=== PATIENT | female | born 1985 | race Caucasian/White ===

== ENCOUNTER 2018-09-29 00:24 | Emergency (ER) | payer SELFPAY ==
[2018-09-29 00:26] VITALS: BMI 19.6
[2018-09-29] MEDS ORDERED: LIBRIUM25 MG PO (00:28)
[2018-09-29 01:25] LABS: APPEARANCE CLEAR (CLEAR); BILIRUBIN NEGATIVE (NEGATIVE); COLOR YELLOW (YELLOW); GLUCOSE NEGATIVE (NEGATIVE); KETONE NEGATIVE (NEGATIVE); NITRITE NEGATIVE (NEGATIVE); PROTEIN NEGATIVE (NEGATIVE); UROBILINOGEN NORMAL (NORMAL)
[2018-09-29 01:33] LABS: HEMOGLOBIN 12.8 g/dL (12-16); LYMPHOCYTES 29.2 % (15-50); MCH 32.9 pg (26.0-34.0); MCHC 36.6 g/dL (31.0-37.0); MEAN PLATELET VOLUME 9.5 fL (7.4-10.4); NEUTROPHILS 62.5 % (40-80); PLATELET COUNT 188 10x3/uL (130-400); RBC 3.89 10x6/uL (4.00-5.40); RDW 12.5 % (11.5-14.5)
[2018-09-29 01:41] LABS: HCG SERUM NEGATIVE (NEGATIVE)
[2018-09-29 01:47] LABS: ALBUMIN 3.5 g/dL (3.4-5.0); ALKALINE PHOSPHATASE 64 U/L (46-116); ALT (SGPT) 18 U/L (10-68); BILIRUBIN - TOTAL 0.25 mg/dL (0.2-1.3); CALC OSMOLALITY 277 mosm/kg (275-300); CALCIUM 8.8 mg/dL (8.5-10.1); CARBON DIOXIDE 28.1 mmol/L (21.0-32.0); CHLORIDE - SERUM 105 mmol/L (98-107); CREATININE - SERUM 0.7 mg/dL (0.6-1.3); GLUCOSE 109 mg/dL (74-106); POTASSIUM - SERUM 3.9 mmol/L (3.5-5.1); PROTEIN - SERUM 6.7 g/dL (6.4-8.2); SODIUM 139 mmol/L (136-145); UREA NITROGEN 10 mg/dL (7-18); eGFR NON AFRICAN AMERICAN > 90 mL/min (90-120)
[2018-09-29 01:57] LABS: APTT 28.5 SECONDS (22.8-39.4); INR 0.96 (0.85-1.17); PROTIME 12.3 SECONDS (11.6-15.0)
[2018-09-29 01:58] LABS: CKMB 1.3 U/L (0.0-3.6); CREATINE KINASE 89 UL (21-215); MAGNESIUM - SERUM 2.1 mg/dL (1.8-2.4)
[2018-09-29 02:05] LABS: TROPONIN-I < 0.017 ng/mL (0.000-0.060)
[2018-09-29 04:53] VITALS: BP 102/73
[2018-09-30] MEDS ORDERED: VIBRAMYCIN 100100 MG PO (17:34)
[2018-09-30] MEDS ORDERED: NAPROSYN500 MG PO (17:34)
== END 2018-09-29 04:53 | disposition home or self-care (01) ==
LOC: D.ER 00:24
PROVIDERS: Family Medicine
DX: R00.2 Palpitations (principal); F10.21 Alcohol dependence, in remission

== ENCOUNTER 2018-09-30 15:49 | Emergency (ER) | payer SELFPAY ==
[~2018-09-30] VITALS: Ht 170.2 cm; Wt 56.8 kg
[~2018-09-30 15:49] MED LIST: LIBRIUM25 MG PO
[2018-09-30 16:22] VITALS: BP 142/89; Ht 170.2 cm; Wt 56.8 kg
[2018-09-30] MEDS ORDERED: VIBRAMYCIN 100100 MG PO (17:34)
[2018-09-30] MEDS ORDERED: NAPROSYN500 MG PO (17:34)
== END 2018-09-30 18:10 | disposition home or self-care (01) ==
LOC: D.ER 15:49
DX: R05 Cough (principal); M94.0 Chondrocostal junction syndrome [Tietze]

== ENCOUNTER 2018-10-22 12:36 | Emergency (ER) | payer MEDICAID ==
[~2018-10-22] VITALS: Ht 170.2 cm; Wt 56.8 kg
[~2018-10-22 12:36] MED LIST changes: +NAPROSYN500 MG PO; +VIBRAMYCIN 100100 MG PO
[2018-10-22 12:39] VITALS: Ht 170.2 cm; Wt 56.8 kg
[2018-10-22] MEDS ORDERED: INDERAL 40 MG T40 MG PO (12:44)
[2018-10-22 14:52] LABS: HCG URINE NEGATIVE (NEGATIVE)
[2018-10-22 15:03] VITALS: BP 124/73
== END 2018-10-22 15:04 | disposition home or self-care (01) ==
LOC: D.ER 12:36
PROVIDERS: Family Medicine
DX: I73.00 Raynaud's syndrome without gangrene (principal); F17.210 Nicotine dependence, cigarettes, uncomplicated

== ENCOUNTER 2018-10-28 11:08 | Emergency (ER) | payer MEDICAID ==
[~2018-10-28 11:08] MED LIST changes: +INDERAL 40 MG T40 MG PO
[2018-10-28 11:21] VITALS: BMI 19.6
[2018-10-28 11:50] LABS: BASOPHILS 0.2 % (0-2); EOSINOPHILS 1.1 % (0-7); HEMOGLOBIN 13.7 g/dL (12-16); IMMATURE GRANULOCYTES 0.4 % (0-5); LYMPHOCYTES 19.9 % (15-50); MCH 31.7 pg (26.0-34.0); MCHC 35.1 g/dL (31.0-37.0); MCV 90.3 fL (80.0-100.0); MEAN PLATELET VOLUME 10.5 fL (7.4-10.4); MONOCYTES 5.8 % (2-11); NEUTROPHILS 72.6 % (40-80); PLATELET COUNT 209 10x3/uL (130-400); RBC 4.32 10x6/uL (4.00-5.40); RDW 12.8 % (11.5-14.5); WBC 10.7 10x3/uL (4.8-10.8)
[2018-10-28 11:57] LABS: APPEARANCE SL CLDY (CLEAR); COLOR YELLOW (YELLOW)
[2018-10-28 11:58] LABS: BACTERIA FEW /hpf (NONE SEEN); BILIRUBIN NEGATIVE (NEGATIVE); EPITHELIAL CELLS OCC /hpf (0-5); GLUCOSE NEGATIVE (NEGATIVE); KETONE NEGATIVE (NEGATIVE); NITRITE NEGATIVE (NEGATIVE); PROTEIN NEGATIVE (NEGATIVE); RED CELLS - URINE >50 /hpf (0-5); UROBILINOGEN NORMAL (NORMAL); WHITE CELLS - URINE RARE /hpf (0-5)
[2018-10-28 12:02] LABS: HCG SERUM NEGATIVE (NEGATIVE)
[2018-10-28 12:13] LABS: ALBUMIN 4.2 g/dL (3.4-5.0); ALKALINE PHOSPHATASE 64 U/L (46-116); ALT (SGPT) 34 U/L (10-68); AMYLASE - SERUM 65 U/L (25-115); CALC OSMOLALITY 277 mosm/kg (275-300); CARBON DIOXIDE 29.5 mmol/L (21.0-32.0); CHLORIDE - SERUM 103 mmol/L (98-107); CREATININE - SERUM 0.9 mg/dL (0.6-1.3); GLUCOSE 138 mg/dL (74-106); LIPASE 181 U/L (73-393); POTASSIUM - SERUM 3.7 mmol/L (3.5-5.1); PROTEIN - SERUM 7.7 g/dL (6.4-8.2); SODIUM 139 mmol/L (136-145); UREA NITROGEN 8 mg/dL (7-18); eGFR NON AFRICAN AMERICAN 76 mL/min (90-120)
[2018-10-28 12:14] LABS: TROPONIN-I < 0.017 ng/mL (0.000-0.060)
[2018-10-28] MEDS ORDERED: BPO TP (13:16)
[2018-10-28 13:51] VITALS: BP 111/73
== END 2018-10-28 13:47 | disposition home or self-care (01) ==
LOC: D.ER 11:08
PROVIDERS: Family Medicine
DX: L70.9 Acne, unspecified (principal); R10.9 Unspecified abdominal pain